=== PATIENT | female | born 1950 | race Caucasian/White ===

== ENCOUNTER → 2017-08-14 | Outpatient (REF) | payer BC ==
[2017-08-14 18:40] LABS: BASO # 0.1 10^3/uL (0.0-0.2); BASO % 0.9 % (0.0-1.0); EOS # 0.3 10^3/uL (0.0-0.50); EOS % 3.7 % (0.0-3.0); HEMATOCRIT 44.8 % (36.0-47.0); HEMOGLOBIN 14.5 g/dl (12.0-15.5); IMMATURE GRANULOCYTE % 0.4 % (0-3.0); LYMPH # 2.8 10^3/uL (1.5-4.5); MEAN CORPUSCULAR HEMOGLOBIN 28.9 pg (27.0-33.0); MEAN CORPUSCULAR HGB CONC 32.4 g/dl (32.0-36.5); MEAN CORPUSCULAR VOLUME 89.2 fl (80.0-96.0); MONO # 0.9 10^3/uL (0.0-0.8); MONO % 10.8 % (0.0-5.0); NEUTROPHILS # 4.1 10^3/uL (1.8-7.7); NEUTROPHILS % 50.2 % (36.0-66.0); PLATELET COUNT, AUTOMATED 243 10^3/uL (150-450); RED BLOOD COUNT 5.02 10^6/uL (4.00-5.40); WHITE BLOOD COUNT 8.1 10^3/uL (4.0-10.0)
[2017-08-14 18:57] LABS: ALBUMIN/GLOBULIN RATIO 1.18 (1.00-1.93); ALKALINE PHOSPHATASE 61 U/L (45-117); ALT/SGPT 30 U/L (12-78); ANION GAP 5 MEQ/L (8-16); AST/SGOT 20 U/L (7-37); BILIRUBIN,TOTAL 0.3 MG/DL (0.2-1.0); BLOOD UREA NITROGEN 16 MG/DL (7-18); CALCIUM LEVEL 9.5 MG/DL (8.8-10.2); CARBON DIOXIDE LEVEL 29 MEQ/L (21-32); CHLORIDE LEVEL 108 MEQ/L (98-107); CHOLESTEROL LEVEL 195 MG/DL (<200); CHOLESTEROL RISK RATIO 4.333 (<5); CREATININE FOR GFR 0.73 MG/DL (0.55-1.30); GLOMERULAR FILTRATION RATE > 60.0 (>45); GLUCOSE, FASTING 105 MG/DL (70-100); HDL CHOLESTEROL 45 MG/DL (>40); LDL CHOLESTEROL 122.6 MG/DL (<100); NON-HDL-C 150 MG/DL; POTASSIUM SERUM 4.3 MEQ/L (3.5-5.1); SODIUM LEVEL 142 MEQ/L (136-145); TOTAL PROTEIN 7.4 GM/DL (6.4-8.2); TRIGLYCERIDES LEVEL 137 MG/DL (<150)
== END ==
LOC: M LAB REF 16:48
DX: E11.9 Type 2 diabetes mellitus without complications (principal); E78.1 Pure hyperglyceridemia; I10 Essential (primary) hypertension
CPT/HCPCS: 80053

== ENCOUNTER → 2022-01-02 | Outpatient (CLI) | payer BC, MEDICARE, OTHER ==
[~2022-01-02] MED LIST: ASPI-255 PO; ATEN100T PO; ATOR1TAB21 PO; CVS500CA5 PO; HYDR-3490 PO; METF500T13 PO; POTA99CA2 PO; RA T500C2 PO; SULF500T2 PO; TARTCAP PO; VITA-243 PO
== END ==
LOC: M LABSMTC 09:19
PROVIDERS: ATTEND Anesthesiology
DX: Z01.818 Encounter for other preprocedural examination (principal); Z11.52 Encounter for screening for COVID-19

== ENCOUNTER 2022-01-05 06:45 | Day surgery (SDC) | payer OTHER ==
[~2022-01-05] VITALS: Ht 165.1 cm; Wt 90.3 kg
[~2022-01-05 06:45] MED LIST changes: +NS 1,000 ML IV ONE
[2022-01-05] MEDS ORDERED: propofoL 200 MG/20 ML VIAL As Ordered ONE ×2 (07:41→07:56)
[2022-01-05] MEDS ORDERED: LIDOCAINE 2% INJ 100 MG/5 ML SYRINGE As Ordered ONE (07:42)
[2022-01-05 08:25] VITALS: BP 166/76
== END 2022-01-05 08:27 | disposition home or self-care (01) ==
LOC: M OPP 06:45
PROVIDERS: ATTEND Surgery
DX: Z12.11 Encounter for screening for malignant neoplasm of colon (principal); K57.30 Diverticulosis of large intestine without perforation or abscess without bleeding; K64.4 Residual hemorrhoidal skin tags; I10 Essential (primary) hypertension; Z79.02 Long term (current) use of antithrombotics/antiplatelets; Z79.51 Long term (current) use of inhaled steroids; Z79.82 Long term (current) use of aspirin; Z79.84 Long term (current) use of oral hypoglycemic drugs; Z79.899 Other long term (current) drug therapy; Z88.5 Allergy status to narcotic agent; Z86.718 Personal history of other venous thrombosis and embolism

== ENCOUNTER → 2022-08-08 | Outpatient (REF) | payer OTHER, MEDICARE ==
[~2022-08-08] MED LIST changes: -NS 1,000 ML IV ONE
== END ==
LOC: M LAB REF 16:27
PROVIDERS: ATTEND Podiatrist Foot & Ankle Surgery
DX: L03.115 Cellulitis of right lower limb (principal)

== ENCOUNTER 2023-05-11 13:41 | Outpatient (RCR) | payer OTHER | END 2023-05-14 | LOC: M ST 13:41 | PROVIDERS: ATTEND Otolaryngology | DX: J38.3 Other diseases of vocal cords (principal) ==

== ENCOUNTER → 2023-07-24 | Outpatient (REF) | payer OTHER, MEDICARE | LOC: M LAB REF 07:50 | PROVIDERS: ATTEND Internal Medicine Endocrinology, Diabetes & Metabolism | DX: E04.2 Nontoxic multinodular goiter (principal) ==

== ENCOUNTER → 2024-01-30 | Outpatient (REF) | payer OTHER, MEDICARE ==
[~2024-01-30] MED LIST changes: +CRAN500C11 PO; -CVS500CA5 PO; +PRED20TA PO; +PYRI1TAB3 PO
== END ==
LOC: M LAB REF 15:21
PROVIDERS: ATTEND Internal Medicine Endocrinology, Diabetes & Metabolism
DX: E04.2 Nontoxic multinodular goiter (principal)

== ENCOUNTER 2024-01-31 11:55 | Day surgery (SDC) | payer OTHER ==
[~2024-01-31] VITALS: Ht 165.1 cm; Wt 83.3 kg
[2024-01-31] MEDS: NS 1,000 ML IV ONE (06:00)
[2024-01-31] MEDS ORDERED: propofoL 200 MG/20 ML VIAL As Ordered ONE (13:45)
[2024-01-31] MEDS ORDERED: hydrALAZINE 20MG/ML 1ML VIAL As Ordered ONE (13:45)
[2024-01-31] MEDS ORDERED: LIDOCAINE 2% 100MG/5ML SDV (FOR ANES.) As Ordered ONE (13:45)
[2024-01-31 14:00] VITALS: TEMP 97.2
[2024-01-31 14:27] VITALS: BP 124/66; O2SAT 96
== END 2024-01-31 14:48 | disposition home or self-care (01) ==
LOC: M OPP 11:55
PROVIDERS: ATTEND Surgery
DX: K31.89 Other diseases of stomach and duodenum (principal); R13.10 Dysphagia, unspecified; G70.00 Myasthenia gravis without (acute) exacerbation; Z86.73 Personal history of transient ischemic attack (TIA), and cerebral infarction without residual deficits; Z79.02 Long term (current) use of antithrombotics/antiplatelets; Z79.82 Long term (current) use of aspirin; Z79.84 Long term (current) use of oral hypoglycemic drugs; Z79.899 Other long term (current) drug therapy; Z88.5 Allergy status to narcotic agent; Z88.8 Allergy status to other drugs, medicaments and biological substances
CPT/HCPCS: 43239; 88305; J0360

== ENCOUNTER → 2024-03-13 | Outpatient (CLI) | payer OTHER ==
[~2024-03-13] MED LIST changes: -CRAN500C11 PO; +CVS500CA5 PO; +E-Z-GAS II EFFERVESCENT PACKET (SODIUM BICARB./CITRIC ACID/SIMETHICONE) As Ordered ONE; +E-Z-HD 98% w/w 340GM SUSP BTL As Ordered ONE; +E-Z-PAQUE 96% w/w SUSP 176GM BTL As Ordered ONE
== END ==
LOC: M RAD 09:37
PROVIDERS: ATTEND Surgery
DX: R13.10 Dysphagia, unspecified (principal)

== ENCOUNTER 2024-12-03 10:09 | Outpatient (CLI) | payer OTHER ==
[~2024-12-03] VITALS: Ht 165.1 cm; Wt 82.4 kg
[~2024-12-03 10:09] MED LIST changes: -E-Z-GAS II EFFERVESCENT PACKET (SODIUM BICARB./CITRIC ACID/SIMETHICONE) As Ordered ONE; -E-Z-HD 98% w/w 340GM SUSP BTL As Ordered ONE; -E-Z-PAQUE 96% w/w SUSP 176GM BTL As Ordered ONE
[2024-12-03 10:30] VITALS: BP 158/72; O2SAT 97
[2024-12-03] MEDS: ACETAMINOPHEN 650MG PO PRIOR TO INFUSION PO ONE (10:49)
[2024-12-03] MEDS: diphenhydrAMINE 25MG PO PRIOR TO INFUSION PO ONE (10:49)
[2024-12-03] MEDS: riTUXimab 1,000 MG in NS (Normal Saline) 0.9% 900 ML IV ONE (11:19)
[2024-12-03 11:45] VITALS: BP 135/62; O2SAT 98
[2024-12-03 12:15] VITALS: BP 121/63; O2SAT 97
[2024-12-03 12:45] VITALS: BP_SYST 118; BP_SYST 120; BP_DIAS 71; BP_DIAS 84; O2SAT 98
[2024-12-03 13:45] VITALS: BP 122/88; O2SAT 97
[2024-12-03 16:00] VITALS: BP 133/65; O2SAT 98
== END 2024-12-03 16:05 | disposition home or self-care (01) ==
LOC: M INFU 10:09
PROVIDERS: ATTEND Psychiatry & Neurology Neurology
DX: G70.01 Myasthenia gravis with (acute) exacerbation (principal); Z88.5 Allergy status to narcotic agent; Z88.8 Allergy status to other drugs, medicaments and biological substances
CPT/HCPCS: 96365; 96366; J2919